=== PATIENT | male | born 1975 | race Caucasian/White ===

== ENCOUNTER 2020-02-25 01:25 | Outpatient (CLI) | payer BC, SELFPAY ==
[2020-02-25 17:41] LABS: SARS-CoV-2 RNA PCR Negative
== END 2020-02-25 01:26 | disposition home or self-care (01) ==
LOC: ANHCOVIDDT 01:25
PROVIDERS: Visit Provider Internal Medicine Gastroenterology
DX: Z01.812 Encounter for preprocedural laboratory examination (principal); Z20.828 Contact with and (suspected) exposure to other viral communicable diseases
CPT/HCPCS: 87635; C9803; U0003

== ENCOUNTER 2020-02-27 02:58 | Day surgery (SDC) | payer BC, SELFPAY ==
[2020-02-20 13:38] VITALS: BMI 33.4
[2020-02-27 08:50] VITALS: BP 142/80; PULSE 91; RESP 18; TEMP 36.7; O2SAT 98
[2020-02-27] MEDS: LACTATED RINGERS 1,000 ML 150 ML IV CONT (09:08)
[2020-02-27 09:21] LABS: Glucose Point of Care 152 (65-105)
--- NOTE | 2020-02-27 09:34 | P.HP_ITS ---
History of Present Illness History of Present Illness Consent: Risks, benefits, and alternatives have been discussed and questions answered. Patient agrees to proceed with procedure. Chief complaint: Melena Narrative: Rolando Haley is a 44 year old male Who has seen blood in his stools the last few months. It is generally dark, sometimes clots. He has had some tendency to constipation, and has had some Pain from time to time in his mid abdomen. [facility] Social History Social History Smoking status: Never smoker Smokeless tobacco user: chewing tobacco Alcohol intake: never Substance use: never Substance use type: does not use Living arrangements: with family Spiritual care concerns: No Meds Home Medications and Allergies Home Medications Medication Instructions Recorded Confirmed Type citalopram 40 mg PO DAILY 02/20/20 02/20/20 History ergocalciferol (vitamin D2) 50,000 unit PO WEEKLY 02/20/20 02/20/20 History insulin lispro [Humalog U-100 0 - 60 sliding scale dose 02/20/20 02/20/20 History Insulin] CONTINUOUS SUBCUTANEOUS INFUSION TID omeprazole 40 mg PO DAILY 02/20/20 02/20/20 History rosuvastatin 20 mg PO DAILY 02/20/20 02/20/20 History Allergies Allergy/AdvReac Type Severity Reaction Status Date / Time No Known Allergies Allergy Verified 02/27/20 08:49 Vital Signs Vital Signs - 24 hr 02/27/20 08:50 Temperature 36.7 C Pulse Rate 91 Respiratory Rate 18 Blood Pressure 142/80 H Pulse Oximetry 98 Exam Const: General: alert Orientation/consciousness: patient oriented x3 Resp: Auscultation: clear to auscultation bilaterally Cardio: Rhythm: regular rhythm GI: GI Palp: Yes Soft to palpation and No Tenderness to palpation present (GI) Neuro: General: patient oriented x3 Assessment and Plan Assessment and plan (1) Blood in stool: Code(s): K92.1 - Melena Status: Acute Assessment and Plan: Colonoscopy with possible biopsy or polypectomy or cautery or injection of substances.EGD with possible biopsy or dilatation or cautery.
--- NOTE | 2020-02-27 09:39 | WPDANESEPPF ---
Anes - Initial Pre Proc Eval Procedure: Operation Date: 02/27/20 09:30 Proposed Procedures p Esophagogastroduodenoscopy & Colonoscopy - Pradeep Ferris MD Date/Time: 02/27/20 09:39 Surgeon: Pradeep Ferris MD Pre Op Diagnosis: Melena Patient Data Age: 44 Gender: M Height: 6 ft 2 in Weight: 117.7 kg Last Vital Signs Temp 98.1 F 02/27/20 08:50 Pulse 91 02/27/20 08:50 Resp 18 02/27/20 08:50 BP 142/80 H 02/27/20 08:50 Pulse Ox 98 02/27/20 08:50 Allergies Allergy/AdvReac Type Severity Reaction Status Date / Time No Known Allergies Allergy Verified 02/27/20 08:49 Home Medications Medication Instructions Recorded Confirmed Type citalopram 40 mg PO DAILY 02/20/20 02/20/20 History ergocalciferol (vitamin D2) 50,000 unit PO WEEKLY 02/20/20 02/20/20 History insulin lispro [Humalog U-100 0 - 60 sliding scale dose 02/20/20 02/20/20 History Insulin] CONTINUOUS SUBCUTANEOUS INFUSION TID omeprazole 40 mg PO DAILY 02/20/20 02/20/20 History rosuvastatin 20 mg PO DAILY 02/20/20 02/20/20 History Laboratory Tests 02/27/20 09:19 POC Capillary Glucose 152 mg/dl H mg/dl (65-105) Patient hx anesthesia problems: none Family hx anesthesia problems: none [facility] Past Medical History Medical History (Updated 02/27/20 @ 09:39 by Pascual Marroquin MD) Depression Diabetes GERD (gastroesophageal reflux disease) Social History Social History Smoking status: Never smoker Smokeless tobacco user: chewing tobacco Alcohol intake: never Substance use: never Substance use type: does not use Living arrangements: with family Spiritual care concerns: No Anes - Eval Final PreProcedure Day of Procedure 02/27/20 09:39 Patient weight: obese Heart: regular rate and rhythm Lungs: clear to auscultation Airway: Mallampati scale class II Neurological: alert and oriented Last oral intake: >/= 8 hours ASA classification: III Emergent: no Anesthetic plan: proceed Anesthesia type and monitoring: general GIVS and standard monitoring Informed Consent: The patient's anesthetic plan and its attendant risks and benefits were discussed with the patient/family/POA. Questions were solicited and answers provided to the satisfaction of the patient/family/POA.
[2020-02-27 10:21] VITALS: BP 106/52; PULSE 82; RESP 12; O2SAT 96
[2020-02-27 10:31] VITALS: BP 107/64; PULSE 79; RESP 13; O2SAT 96
[2020-02-27 10:41] VITALS: BP 108/59; PULSE 73; RESP 12; O2SAT 96
== END 2020-02-27 11:09 | disposition home or self-care (01) ==
PROVIDERS: PCP Nurse Practitioner Family; Visit Provider Internal Medicine Gastroenterology
PROC: 0DJ08ZZ Inspection of Upper Intestinal Tract, Via Natural or Artificial Opening Endoscopic (ICD-10-PCS; CPT 43235; principal; 2020-02-27 09:30)
DX: K62.5 Hemorrhage of anus and rectum (principal); K62.89 Other specified diseases of anus and rectum; K21.9 Gastro-esophageal reflux disease without esophagitis; E11.9 Type 2 diabetes mellitus without complications; F32.9 Major depressive disorder, single episode, unspecified; Z79.4 Long term (current) use of insulin; E66.9 Obesity, unspecified; Z68.33 Body mass index [BMI] 33.0-33.9, adult
CPT/HCPCS: 45380; 43239; 87081; 88305; 88342; J2704; J7120

== ENCOUNTER 2022-09-21 07:31 | Emergency (ER) | payer OTHER, SELFPAY ==
--- NOTE | ~2022-09-21 | XR_ITS ---
EXAMINATION: XR chest 1V portable DATE: 09/21/2022 08:15 INDICATION: Chest pain radiating to the back. TECHNIQUE: A single frontal view of the chest was obtained. COMPARISON: None. FINDINGS: There is mild atelectasis in left lower lung zone. No pleural effusion or pneumothorax. The heart size is normal. IMPRESSION: 1. Mild atelectasis in left lower lung zone. Reviewed, dictated and finalized at location A.
[2022-09-21 07:32] VITALS: BP 135/74; PULSE 86; RESP 15; TEMP 36.2; O2SAT 100
--- NOTE | 2022-09-21 07:34 | ECG_ITS ---
Measurements Intervals [place] Rate: 97 P: 22 RI: 134 QRS: -16 QRSD: 89 T: 30 QT: 331 QTc: 422 Interpretive Statements SINUS RHYTHM BASELINE WANDER- V1 NORMAL ECG NO PREVIOUS ECG AVAILABLE FOR COMPARISON Electronically Signed On 09-21-2022 7:57:03 CDT by Dewayne Smith D.O.
[2022-09-21 07:37] VITALS: BP 132/75; RESP 19; TEMP 36.8; O2SAT 99
[2022-09-21 07:44] VITALS: PULSE 95
[2022-09-21 07:46] VITALS: BP 125/72; PULSE 95; RESP 23; O2SAT 98
--- NOTE | 2022-09-21 07:50 | ED.CHESTPAIN ---
HPI - Chest Pain General Chief Complaint: Chest Pain Stated Complaint: chest pain Time Seen by Provider: 09/21/22 07:36 History of Present Illness HPI narrative: Pt presents with sharp pain across anterior chest since about 0300 this morning. Pt says the pain has been constant and radiates to low back. Pt denies SOB. Pt denies SOB or change in pain with breathing. Pt denies calf pain or PERKINS. Pt has had recent hand foot mouth and strep throat infections. Pt has not tried anything to relieve symptoms yet. Related Data Home Medications Medication Instructions Recorded Confirmed citalopram 40 mg tablet 40 mg PO DAILY 02/20/20 03/13/20 ergocalciferol (vitamin D2) 1,250 50,000 unit PO WEEKLY 02/20/20 03/13/20 mcg (50,000 unit) capsule insulin lispro 100 unit/mL 0 - 60 sliding scale dose 02/20/20 03/13/20 subcutaneous solution (Humalog continuous subcutaneous infusion U-100 Insulin) TID omeprazole 40 mg capsule,delayed 40 mg PO DAILY 02/20/20 03/13/20 release rosuvastatin 20 mg tablet 20 mg PO DAILY 02/20/20 03/13/20 Allergies Allergy/AdvReac Type Severity Reaction Status Date / Time No Known Allergies Allergy Verified 03/13/20 10:21 Review of Systems Review of Systems: All systems reviewed & are unremarkable except as noted in HPI and below PMFSH Past Medical History Medical History (Updated 09/21/22 @ 08:31 by Alice Sánchez III, DO) Depression Diabetes GERD (gastroesophageal reflux disease) Ulcerative proctitis Social History Social History (Updated 03/13/20 @ 10:25 by Lesley Muniz CMA) Years smoked: 27 Smoking status: Never smoker Smokeless tobacco user: chewing tobacco Alcohol intake: never Substance use: never Substance use type: does not use Living arrangements: with family Spiritual care concerns: No Exam Const: General: healthy appearing Nutritional Appearance: well nourished Orientation/consciousness: patient oriented x3 Limitations: no limitations Eyes: Conjunctivae: conjunctivae normal EOM: EOMs intact bilaterally Neck: Neck: normal visual inspection, no lymphadenopathy and no meningeal signs Chest: Chest palpation & inspection: normal inspection of the chest Resp: Effort & Inspection: normal respiratory effort Auscultation: clear to auscultation bilaterally Cardio: Rate: regular rate Rhythm: regular rhythm GI: GI Palp: Yes Soft to palpation Auscultation: normal bowel sounds Back/Spine/Pelvis: Back: no CVA tenderness Skin: General skin exam: normal color Neuro: General: patient oriented x3, moves all extremities, no focal motor deficits and CN's II-XI intact bilaterally Cranial nerves: Yes Nystagmus not present Speech: normal speech Extrem: General: normal to inspection and no clubbing, cyanosis or edema Psych: Mental Status: mental status grossly normal Affect: normal affect Attitude: cooperative Course Vital Signs Vital signs: Vital Signs Temperature 97.1 F L 09/21/22 07:32 Pulse Rate 86 09/21/22 07:32 Respiratory Rate 15 09/21/22 07:32 Blood Pressure 135/74 09/21/22 07:32 Pulse Oximetry 100 09/21/22 07:32 Oxygen Delivery Room Air 09/21/22 07:32 Temperature 98.2 F 09/21/22 07:37 Pulse Rate 109 H 09/21/22 08:31 Respiratory Rate 22 H 09/21/22 08:31 Blood Pressure 120/66 09/21/22 08:31 Pulse Oximetry 96 09/21/22 08:31 Oxygen Delivery Room Air 09/21/22 07:37 MDM - Chest Pain MDM Narrative Medical decision making narrative: Pt has sharp CP for almost 5 hrs persistently EKG is normal. Does not seem likely to be cardiac but should get a troponin and labs and cxr to be safe and try some toradol for pain. cp relieved with toradol and trop and ekg and labs fine. pt wants to go home. Differential Diagnosis Differential diagnosis: Likely pneumothorax, atypical chest pain, st elevation myocardial infarction, costochondritis, chest pain and other (pleurisy) Lab Data 09/21/22 07:48
[2022-09-21] MEDS: KETOROLAC 15 MG/ML VIAL (*BKC) IV PUSH (07:55)
[2022-09-21 07:56] LABS: Basophils Absolute Auto 0.1 K/mm3 (0.0-0.1); Eosinophils Absolute Auto 0.3 K/mm3 (0-0.3); Eosinophils Percent Auto 2.8 % (0-4.4); Hematocrit 38.8 % (42.0-52.0); Hemoglobin 13.3 g/dL (14.0-18.0); Immature Granulocyte Absolute 0.86 K/mm3 (0.00-0.031); Immature Granulocyte Percent A 8.9 % (0-0.5); Immature Platelet Fraction Pct 6.1 % (0.9-11.2); Lymphocytes Absolute Auto 1.24 K/mm3 (0.9-3.2); Lymphocytes Percent Auto 12.8 % (18.3-44.2); Mean Corpuscular HGB Conc 34.3 g/dl (32-36); Mean Corpuscular Volume 87.6 fl (80-100); Mean Platelet Volume 10.4 fl (7.4-10.4); Monocytes Absolute Auto 0.6 K/mm3 (0.1-0.6); Monocytes Percent Auto 5.8 % (2.6-8.5); Neutrophils Absolute Auto 6.6 K/mm3 (1.3-6.7); Neutrophils Percent Auto 68.7 % (45.5-73.1); Nucleated Red Blood Cells Perc 0.2 % (0.0-0.2); Platelet Count Result 148 k/mm3 (150-375); Red Blood Count 4.43 M/mm3 (4.6-6.20); Red Cell Distribution Width 12.4 % (11.5-14.5); White Blood Count 9.7 K/mm3 (4.5-10.0)
[2022-09-21 08:07] LABS: Alanine Aminotransferase 28 U/L (6-50); Albumin Level 3.8 g/dL (3.5-5.1); Alkaline Phosphatase 125 U/L (38-126); Anion Gap 6 mmol/L (8-16); Aspartate Amino Transferase 28 U/L (17-59); Bilirubin,Total 5.7 mg/dL (0.2-1.3); Blood Urea Nitrogen 15 mg/dL (9-20); Calcium 8.4 mg/dL (8.4-10.2); Carbon Dioxide 28 mmol/L (22-30); Chloride 101 mmol/L (98-107); Estimated CRCL calculation 133 ml/min; Estimated Glomerular Filt Rate > 60; Glucose 153 mg/dL (65-110); Lipase 18 U/L (23-300); Potassium 3.5 mmol/L (3.4-5.0); Sodium 135 mmol/L (137-145)
[2022-09-21 08:08] LABS: INR 1.1; Prothrombin Time 14.3 Seconds (11.1-14.7)
[2022-09-21 08:09] LABS: Partial Thromboplastin Time 34.3 SECONDS (22.3-36.8)
[2022-09-21 08:15] VITALS: RESP 22; O2SAT 95
[2022-09-21 08:18] LABS: Troponin I < 0.012 ng/mL (0.000-0.034)
[2022-09-21 08:31] VITALS: BP 120/66; PULSE 109; RESP 22; O2SAT 96
== END 2022-09-21 09:03 | disposition home or self-care (01) ==
PROVIDERS: Emergency Provider Emergency Medicine; PCP Nurse Practitioner Family
DX: R09.1 Pleurisy (principal); F32.A Depression, unspecified; E11.9 Type 2 diabetes mellitus without complications; Z79.4 Long term (current) use of insulin; K21.9 Gastro-esophageal reflux disease without esophagitis
CPT/HCPCS: 36415; 71045; 80053; 83690; 84484; 85025; 85055; 85610; 85730; 93005; 96374; 99284; J1885

== ENCOUNTER 2023-06-18 12:48 | Observation (INO) | payer OTHER, SELFPAY ==
[2023-06-18] VITALS (8 sets, daily range): BP systolic 113–132; BP diastolic 76–81; PULSE 75–114; RESP 13–20; TEMP 36.5–36.7; O2SAT 96–99; BMI 29.1
[2023-06-18 13:29] LABS: Basophils Percent Auto 0.5 % (0.2-1.2); Eosinophils Percent Auto 0.2 % (0-4.4); Hematocrit 46.2 % (42.0-52.0); Hemoglobin 15.2 g/dL (14.0-18.0); Immature Granulocyte Absolute 0.02 K/mm3 (0.00-0.031); Immature Granulocyte Percent A 0.2 % (0-0.5); Lymphocytes Percent Auto 20.6 % (18.3-44.2); Mean Corpuscular HGB Conc 32.9 g/dl (32-36); Mean Corpuscular Hemoglobin 29.3 pg (26-34); Mean Platelet Volume 11.1 fl (7.4-10.4); Monocytes Absolute Auto 0.3 K/mm3 (0.1-0.6); Monocytes Percent Auto 4.1 % (2.6-8.5); Neutrophils Absolute Auto 6.1 K/mm3 (1.3-6.7); Neutrophils Percent Auto 74.4 % (45.5-73.1); Platelet Count Result 222 k/mm3 (150-375); Red Blood Count 5.19 M/mm3 (4.6-6.20); Red Cell Distribution Width 12.3 % (11.5-14.5); White Blood Count 8.3 K/mm3 (4.5-10.0)
[2023-06-18 13:30] LABS: Appearance Urine Clear (Clear); Bilirubin Urine Negative (Negative); Blood Urine Negative (Negative); Color Urine Yellow (Yellow); Glucose Urine UA 3+ mg/dL (Negative); Ketones Urine 4+ mg/dL (Negative); Leukocyte Esterase Ur Negative LEU/UL (Negative); Nitrate Urine Negative (Negative); Protein Urine Negative (Negative); Specific Grav Ur 1.032 (1.001-1.035); Urobilinogen Urine 0.2 mg/dL (<2.0)
[2023-06-18 13:39] LABS: Add Urine Microscopic? NO
[2023-06-18 13:41] LABS: Alanine Aminotransferase 22 U/L (6-50); Albumin Level 4.3 g/dL (3.5-5.1); Alkaline Phosphatase 240 U/L (38-126); Anion Gap 20 mmol/L (8-16); Aspartate Amino Transferase 25 U/L (17-59); Bilirubin,Total 1.4 mg/dL (0.2-1.3); Blood Urea Nitrogen 20 mg/dL (9-20); Calcium 9.5 mg/dL (8.4-10.2); Carbon Dioxide 14 mmol/L (22-30); Chloride 98 mmol/L (98-107); Estimated CRCL calculation 116 ml/min; Estimated Glomerular Filt Rate > 60; Glucose 441 mg/dL (65-110); Magnesium 2.2 mg/dL (1.6-2.3); Phosphorus 3.6 mg/dL (2.5-4.5); Potassium 4.7 mmol/L (3.4-5.0); Sodium 132 mmol/L (137-145)
[2023-06-18 14:13] LABS: Beta-Hydroxybutyrate/Acetoacetate 7.56 mmol/L (0.02-0.27)
[2023-06-18 15:41] LABS: Glucose Point of Care 380 mg/dl (65-105)
[2023-06-18] MEDS: SODIUM CHLORIDE 0.9% IV 1,000 ML 999 ML IV CONT ×3 (15:53→17:33)
[2023-06-18] MEDS: INSULIN HUMAN REGULAR (*BKC) 100 UNITS/ML 10 UNITS IV PUSH (15:53)
--- NOTE | 2023-06-18 15:53 | ED.RECABL ---
HPI - Recheck/Abnormal Lab/Rx General Chief Complaint: Recheck/Abnormal Lab/Rx Stated Complaint: high blood sugar Time Seen by Provider: 06/18/23 15:43 Source: patient Mode of arrival: ambulatory Limitations: no limitations History of Present Illness HPI narrative: This is a 47-year-old male that presents to the emergency department for nausea and vomiting. Ongoing intermittently over the last couple of days. Reports generalized weakness and dry mouth today. Reports his blood sugars have been elevated. He recently switched from being on an Omnipod to insulin injections. Denies fever, cough, congestion, dysuria, or abdominal pain. Related Data Home Medications Medication Instructions Recorded Confirmed citalopram 40 mg tablet 40 mg PO DAILY 02/20/20 06/18/23 insulin lispro 100 unit/mL 0 - 60 sliding scale dose 02/20/20 06/18/23 subcutaneous solution (Humalog continuous subcutaneous infusion U-100 Insulin) TID Allergies Allergy/AdvReac Type Severity Reaction Status Date / Time No Known Allergies Allergy Verified 06/18/23 15:41 Review of Systems Review of Systems: CONSTITUTIONAL: Denies fever ENT: Denies rhinorrhea, congestion, sore throat RESPIRATORY: Denies cough or dyspnea. GASTROINTESTINAL: Reports nausea, vomiting GENITOURINARY: Denies dysuria All systems reviewed & are unremarkable except as noted in HPI and below PMFSH Past Medical History Medical History (Updated 06/18/23 @ 18:00 by Alise Platt PA-C) Depression Diabetes GERD (gastroesophageal reflux disease) Ulcerative proctitis Social History Social History (Updated 03/13/20 @ 10:25 by Lesley Muniz [facility]) Years smoked: 27 Smoking status: Never smoker Smokeless tobacco user: chewing tobacco Alcohol intake: never Substance use: never Substance use type: does not use Living arrangements: with family Spiritual care concerns: No Exam Narrative: GENERAL: Well-appearing, well-nourished, and in no acute distress. HEAD: Normocephalic, atraumatic. EYES: EOMI. ENT: Nares clear, no rhinorrhea or epistaxis. Mucous membranes dry. CHEST: Clear to auscultation. No respiratory distress. No wheezes rales or rhonchi HEART: Regular rate and rhythm. No murmur heard. Normal peripheral pulses. ABDOMEN: Soft, nontender, nondistended, normal active bowel sounds. EXTREMITIES: Normal range of motion. No edema. SKIN: Warm, dry, no rash. NEURO: No focal deficits. Alert and oriented x3. PSYCH: Normal mood and affect Course Course Emergency Course: Patient updated on his workup and need for admission Consultations Consultation #1: Spoke with hospitalist about patient and workup who accepts admission Date: 06/18/23 Consultation #2: Spoke with retail planner who will consult Date: 06/18/23 Vital Signs Vital signs: Vital Signs Temperature 97.8 F 06/18/23 13:07 Pulse Rate 114 H 06/18/23 13:07 Respiratory Rate 16 06/18/23 13:07 Blood Pressure 126/80 06/18/23 13:07 Pulse Oximetry 98 06/18/23 13:07 Temperature 97.8 F 06/18/23 13:07 Pulse Rate 88 06/18/23 17:16 Respiratory Rate 17 06/18/23 17:16 Blood Pressure 132/80 06/18/23 17:16 Pulse Oximetry 98 06/18/23 17:16 MDM - Recheck/Abnormal Lab/Rx MDM Narrative Medical decision making narrative: This is a 47-year-old male that presents to the emergency department for elevated blood sugars, vomiting and feeling generally unwell. Tachycardic upon arrival, this normalized with IV fluid hydration. He is afebrile and nontoxic appearing. CBC without leukocytosis. Metabolic panel with anion gap of 20, bicarb is 14, blood sugar 441. 4+ ketones in the urine. Beta hydroxybutyrate is elevated. On ABG pH is normal, bicarb is 23.8. Patient updated on his workup and need for admission. Hydrated with 3 L of IV fluids and started on insulin drip. Spoke with hospitalist about patient and workup who accepts admission. Spoke with retail planner who rossana
[2023-06-18 16:07] LABS: Alveolar/Arterial O2 Gradient 20.9 mmHg; Base Excess ABG -9.9 mEq/l (+/-2.0); Carboxyhemoglobin 0.8 % THb (0-2.0); Fractional Inspired Oxygen 21 %; HCO3 ABG 13.3 mEq/l (22.0-26.0); Methemoglobin ABG 0.3 %THb (0-1.5); Oxygen Content ABG 20.1 %vol (16.0-22.0); Oxygen Saturation ABG 97.5 % (95.0-100.0); Oxyhemoglobin 96.1 % THb (90.0-100.0); PO2 ABG 100.3 mmHg (80.0-100.0); PO2 FiO2 Ratio Arterial Blood 4.78 %; Reduced Hemoglobin 2.8 %THb (0-5.0); Total Hemoglobin 14.8 g/dL (12.0-18.0); pH ABG 7.366 (7.350-7.450)
[2023-06-18] MEDS: INSULIN HUMAN REGULAR (*BKC) 100 UNITS in SODIUM CHLORIDE 0.9% IV 99 ML 10.9 UNITS IV CONT (16:07)
[2023-06-18 16:10] LABS: PCO2 ABG 23.8 mmHg (35.0-45.0)
[2023-06-18 16:11] LABS: Modified Allen's Test Pass; Site Drawn RIGHT RADIAL
[2023-06-18 16:57] LABS: Hemoglobin A1C 12.1 % (<5.7)
[2023-06-18 17:01] LABS: Anion Gap 17 mmol/L (8-16); Blood Urea Nitrogen 18 mg/dL (9-20); Calcium 8.8 mg/dL (8.4-10.2); Carbon Dioxide 13 mmol/L (22-30); Chloride 103 mmol/L (98-107); Estimated CRCL calculation 146 ml/min; Estimated Glomerular Filt Rate > 60; Glucose 287 mg/dL (65-110); Potassium 3.8 mmol/L (3.4-5.0); Sodium 133 mmol/L (137-145)
[2023-06-18 17:18] LABS: Glucose Point of Care 239 mg/dl (65-105)
[2023-06-18] MEDS: SODIUM CHLORIDE 0.9% IV 1,000 ML 125 ML IV CONT (17:33)
[2023-06-18 18:19] LABS: Glucose Point of Care 221 mg/dl (65-105)
--- NOTE | 2023-06-18 18:19 | PM.IMHP ---
H&P: HPI History of Present Illness Date/Time: 06/18/23 18:20 Chief Complaint: High blood sugar. Narrative: This is a 47-year-old male with insulin-dependent type 2 diabetes mellitus who presented to the emergency department via private vehicle for evaluation of high blood sugar. The patient provides the following history. The last several days his glucose has been reading HIGH on his glucometer and he has not been feeling great since that time with generalized weakness, dry mouth, nausea, and vomiting. He was recently switched from being on an Omnipod to sliding scale insulin due to a change in insurance and doctors. He has had a much more difficult time keeping his glucose under control with this method. He does not really have any other complaints and he denies fever, chills, sweats, cold and flu symptoms, chest pain, shortness a breath, abdominal pain, nausea, vomiting, diarrhea. In the ED: He was afebrile on arrival with stable blood pressures. He was mildly tachypneic but that has improved with IV fluids. His labs were significant for sodium of 132, potassium 4.7, carbon dioxide 14, anion gap 20, BUN 20, creatinine 0.90, glucose 441, beta hydroxybutyrate 7.56. Urine was positive for 3+ glucose and 4+ ketones. Hemoglobin A1c was 12.1%. ABG showed a pH of 7.336, pCO2 23.8, and a HC03 of 13.3. He was given 2 L normal saline and was started on insulin drip for DKA. He is being admitted to the ICU for further treatment. Review of Systems Review of Systems: Twelve systems were reviewed and are negative except for as per HPI. [facility] Past Medical History Medical History (Updated 06/19/23 @ 13:59 by Tresa Stephenson PA-C) Depression Gastroesophageal reflux disease Insulin dependent type 2 diabetes mellitus Ulcerative proctitis Surgical History Surgical History History of colonoscopy (02/2020) Proctitis. History of esophagogastroduodenoscopy (02/2020) NERD. Family History Family History (Updated 06/19/23 @ 13:59 by Tresa Stephenson PA-C) Other Diabetes mellitus Hypertension Social History Social History Social History: Surrogate medical decision maker: Linda Haley, spouse. Code status: Full code. Smoking status: Never smoker Smokeless tobacco user: chewing tobacco Second hand tobacco smoke exposure: Yes Alcohol intake: never Substance use: never Substance use type: does not use Do You Feel Safe in your Home?: Yes Lack of Transportation: No Lack of Food: Never True Current Housing: I Have Housing Concerned About Future Housing: No Difficulty Paying Gas/Electric Bills: No Difficulty Paying for Meds: No Currently Unemployed: No Education: Don't Know Difficulty w/ Childcare or Family Care: No Living arrangements: with family Spiritual care concerns: No Meds Home Medications and Allergies Home Medications Medication Instructions Recorded Confirmed Type citalopram 40 mg tablet 40 mg PO DAILY 02/20/20 06/18/23 History insulin lispro 100 unit/mL 0 - 60 sliding scale dose 02/20/20 06/18/23 History subcutaneous solution (Humalog continuous subcutaneous infusion U-100 Insulin) TID Allergies Allergy/AdvReac Type Severity Reaction Status Date / Time No Known Allergies Allergy Verified 06/18/23 15:41 Vital Signs Vital Signs - 24 hr 06/18/23 13:07 06/18/23 15:28 06/18/23 15:39 Temperature 97.8 F Pulse Rate 114 H 101 H Respiratory Rate 16 20 Blood Pressure 126/80 129/81 Pulse Oximetry 98 97 98 06/18/23 17:16 Temperature Pulse Rate 88 Respiratory Rate 17 Blood Pressure 132/80 Pulse Oximetry 98 Exam Narrative: General: Moderately ill-appearing gentleman in the semi-Mccarthy position in bed. Weight: 103.8 kg. BMI: 29.4. HEENT: PERRL, EOMI. Sclera anicteric. Tacky mucous membranes. Neck: Supple. Respirator
--- NOTE | 2023-06-18 18:35 | ADMGEN ---
This patient, Rolando Haley, was admitted to Intensive Care Unit-6. Patient/family oriented to hospital policies and general routines including ID bracelet, bed and alarms, visiting hours, pain management, procedures, bathroom and other care routines, personal items, smoking policy, room service/diet, and visiting hours. Information on how to activate the Rapid Response Team has been discussed. Patient/Family are encouraged to report perceived risks to care and to ask questions if they do not understand what they are told or what they should do.
[2023-06-18] MEDS: KCL 20 MEQ/D5/0.45% SOD CHL 1,000 ML 150 ML IV CONT (19:14)
[2023-06-18 19:27] LABS: Glucose Point of Care 185 mg/dl (65-105)
[2023-06-18 19:40] LABS: Hemoglobin A1C 11.9 % (<5.7)
[2023-06-18 19:44] LABS: Anion Gap 7 mmol/L (8-16); Blood Urea Nitrogen 16 mg/dL (9-20); Calcium 8.1 mg/dL (8.4-10.2); Carbon Dioxide 19 mmol/L (22-30); Chloride 109 mmol/L (98-107); Estimated CRCL calculation 149 ml/min; Estimated Glomerular Filt Rate > 60; Glucose 167 mg/dL (65-110); Phosphorus 2.9 mg/dL (2.5-4.5); Potassium 3.7 mmol/L (3.4-5.0); Sodium 135 mmol/L (137-145)
[2023-06-18] MEDS: INSULIN GLARGINE (*BKC) 100 UNITS/ML 30 UNITS SUB-Q (20:38)
[2023-06-18 20:42] LABS: Glucose Point of Care 170 mg/dl (65-105)
[2023-06-18 21:18] LABS: Glucose Point of Care 165 mg/dl (65-105)
[2023-06-18 22:20] LABS: Glucose Point of Care 188 mg/dl (65-105)
[2023-06-18 23:11] LABS: Glucose Point of Care 165 mg/dl (65-105)
[2023-06-19] VITALS (10 sets, daily range): BP systolic 119–146; BP diastolic 73–94; PULSE 73–91; RESP 12–20; TEMP 36.4–36.6; O2SAT 93–99
[2023-06-19 02:14] LABS: MRSA (PCR) NOT DETECTED (NOT DETECTE)
[2023-06-19 04:30] LABS: Hematocrit 39.7 % (42.0-52.0); Hemoglobin 13.4 g/dL (14.0-18.0); Mean Corpuscular HGB Conc 33.8 g/dl (32-36); Mean Corpuscular Hemoglobin 29.5 pg (26-34); Mean Corpuscular Volume 87.3 fl (80-100); Mean Platelet Volume 11.4 fl (7.4-10.4); Platelet Count Result 193 k/mm3 (150-375); Red Blood Count 4.55 M/mm3 (4.6-6.20); Red Cell Distribution Width 12.6 % (11.5-14.5); White Blood Count 6.6 K/mm3 (4.5-10.0)
[2023-06-19 04:43] LABS: Alanine Aminotransferase 16 U/L (6-50); Albumin Level 3.3 g/dL (3.5-5.1); Alkaline Phosphatase 120 U/L (38-126); Anion Gap 9 mmol/L (8-16); Aspartate Amino Transferase 23 U/L (17-59); Bilirubin,Total 1.2 mg/dL (0.2-1.3); Blood Urea Nitrogen 12 mg/dL (9-20); Calcium 8.4 mg/dL (8.4-10.2); Carbon Dioxide 17 mmol/L (22-30); Chloride 108 mmol/L (98-107); Estimated CRCL calculation 129 ml/min; Estimated Glomerular Filt Rate > 60; Glucose 236 mg/dL (65-110); Magnesium 2.1 mg/dL (1.6-2.3); Potassium 4.5 mmol/L (3.4-5.0); Sodium 134 mmol/L (137-145)
[2023-06-19 07:43] LABS: Glucose Point of Care 232 mg/dl (65-105)
[2023-06-19] MEDS: INSULIN ASPART (*BKC) 100 UNITS/ML SUB-Q ×4 (08:04→21:25)
[2023-06-19] MEDS: ENOXAPARIN 40 MG/0.4 ML SYRINGE SUB-Q (08:04)
[2023-06-19] MEDS: CITALOPRAM HYDROBROMIDE 20 MG TABLET 40 MG PO (08:10)
--- NOTE | 2023-06-19 09:46 | WPDCNINT ---
Assessment and Plan Assessment and plan (1) DKA (diabetic ketoacidosis): Qualifiers: Diabetes mellitus complication detail: without coma Diabetes mellitus type: type 2 Qualified Code(s): E11.10 - Type 2 diabetes mellitus with ketoacidosis without coma Code(s): E11.10 - Type 2 diabetes mellitus with ketoacidosis without coma Status: Acute Assessment and Plan: Patient presented the ED on 06/18/2023 from home with complains of elevated blood sugars, nausea, vomiting, generalized weakness was 7 days. He has been recently switched to SQinsulin from his insulin pump due to insurance issues -patient was found to be in DKA with elevated blood sugars, elevated beta hydroxybutyrate, anion gap metabolic acidosis, UA did show positive ketones and glucose -he was given 3 L IV fluid bolus in the ER and started on insulin infusion per DKA protocol -upon arrival to the ICU patient was transitioned by the hospitalist team to long-acting insulin Lantus and sliding scale insulin. -symptoms have resolved this morning, patient is tolerating his diabetic diet - (2) Uncontrolled diabetes mellitus: Status: Acute Assessment and Plan: Hemoglobin A1c this admission is 12.1 -blood sugars need to be better controlled -continue to monitor in the hospital on Lantus, will adjust as necessary (3) Depression: Code(s): F32.9 - Major depressive disorder, single episode, unspecified Status: Acute Assessment and Plan: Continue citalopram Plan DVT prophylaxis: Lovenox Stress ulcer prophylaxis: Not indicated Nutrition: Diabetic diet Code Status: Full code Critical Care Time Spent: 43 minutes Due to a high probability of clinically significant, life threatening deterioration, the patient required my highest level of preparedness to intervene emergently and I personally spent this critical care time directly and personally managing the patient. This critical care time included obtaining a history; examining the patient; pulse oximetry; ordering and review of studies; arranging urgent treatment with development of a management plan; evaluation of patient's response to treatment; frequent reassessment; and discussions with other providers. It was exclusive of separately billable procedures and treating other patients and teaching time. Please see Assessment and Plan section and the rest of the note for further information on patient assessment and treatment This dictation may have been done utilizing a voice recognition system. Attempts have been made to correct errors. However, there may be uncorrected grammatical, spelling, and recognitions errors present. [employer] Consult Note Consult date: 06/19/23 Reason for consult: Diabetic ketoacidosis, nausea, vomiting, hyperglycemia, generalized weakness HPI: Rolando Haley is a 47 year old male with past medical history of depression, diabetes, GERD, ulcerative proctitis presented to the ED on 04/17/2024 with complains of elevated blood sugars on his glucometer, has not been feeling good for the last several days, complaining of nausea, vomiting, dry mouth, generalized weakness. In the ER patient was found to be in diabetic ketoacidosis with elevated blood sugars of 441, elevated beta hydroxybutyrate and anion gap metabolic acidosis. Urine analysis was positive with 3+ glucose and 4+ ketones. His hemoglobin A1c is 12.1 this admission. Patient was given 3 L IV fluids and started on insulin infusion per DKA protocol and transferred to the ICU for further management. Patient seen and examined this morning, has already been transition overnight by the hospitalist team on long-acting insulin, Lantus and sliding scale insulin Accu-Cheks. Morning patient denies any chest pain, shortness a medical nausea, vomiting, abdominal pain. States he feels much better. Patient had adequate urine output, afebrile, hemodynamically stable.. Tolerating p.o. diet Review of Systems Review of S
--- NOTE | 2023-06-19 10:43 | PC.NURSE ---
SBAR faxed to med/surg, pt is aware he is not getting fully discharged from the hospital but is getting downgraded and moved to the 3rd floor, tele removed
--- NOTE | 2023-06-19 10:55 | PC.NURSE ---
This patient, Rolando Haley, was transferred to room 307 bed 2 on 06/19/23 at 1055. Personal belongings sent with patient. Report given to Susy. Appropriate documentation sent with patient.
[2023-06-19 11:44] LABS: Glucose Point of Care 297 mg/dl (65-105)
--- NOTE | 2023-06-19 13:41 | PM.IMPN ---
Progress Note: A&P Assessment and Plan (1) DKA (diabetic ketoacidosis): Qualifiers: Diabetes mellitus complication detail: without coma Diabetes mellitus type: type 2 Qualified Code(s): E11.10 - Type 2 diabetes mellitus with ketoacidosis without coma Code(s): E11.10 - Type 2 diabetes mellitus with ketoacidosis without coma Status: Acute Assessment and Plan: Patient presented the ED on 06/18/2023 from home with complains of elevated blood sugars, nausea, vomiting, generalized weakness was 7 days. He has been recently switched to SQinsulin from his insulin pump due to insurance issues -patient was found to be in DKA with elevated blood sugars, elevated beta hydroxybutyrate, anion gap metabolic acidosis, UA did show positive ketones and glucose -he was given 3 L IV fluid bolus in the ER and started on insulin infusion per DKA protocol -upon arrival to the ICU patient was transitioned by the hospitalist team to long-acting insulin Lantus and sliding scale insulin. -symptoms have resolved this morning, patient is tolerating his diabetic diet 06/19/23: Transferred to the [facility]; eager to be discharged. Added BID Lantus and incrased his correctional scale to high scale (2) Uncontrolled diabetes mellitus: Status: Acute Assessment and Plan: Hemoglobin A1c this admission is 12.1 -blood sugars need to be better controlled -continue to monitor in the hospital on Lantus, will adjust as necessary (3) Depression: Code(s): F32.9 - Major depressive disorder, single episode, unspecified Status: Acute Assessment and Plan: Continue citalopram Plan DVT prophylaxis: Lovenox Stress ulcer prophylaxis: Not indicated Nutrition: Diabetic diet Code Status: Full code Time Spent With Patient Time with patient: 25 - 35 minutes Subjective Date/time seen: 06/19/23 13:41 Interval history: 06/19/23: Seen and examined; being managed for DKA. Eager to go home. Review of Systems Review of Systems: Twelve systems were reviewed and are negative except for as per HPI. Constitutional: Constitutional: Reports fatigue Eyes: Eyes: Reports no additional eye complaints ENT: Reports Normal hearing present, Denies dysphagia and Denies epistaxis Cardiovascular: Cardiovascular: Denies chest pain, Denies pedal edema and Denies leg edema Respiratory: Respiratory: Denies cough and Denies dyspnea Gastrointestinal: Gastrointestinal: Denies no additional gastrointestinal complaints, Denies diarrhea and Denies vomiting Genitourinary: Genitourinary: Denies flank pain, Denies urinary frequency and Denies urinary urgency Musculoskeletal: Musculoskeletal: Denies myalgias Neurologic: Denies Abnormal speech present, Denies abnormal gait and Denies confusion Psychiatric: Psychiatric: Reports no additional psychiatric complaints Exam Narrative: General: Pleasant gentleman in no acute distress HEENT:? Pupils equal and reactive, sclera is clear, moist oral mucosa Neck:? Supple Respiratory: Clear to auscultation bilaterally, adequate air entry, no wheezing Cardiac:? S1-S2 is normal, regular rate and rhythm Abdomen:? Soft, nontender, nondistended, normoactive bowel sounds Extremities:? No edema, palpable pedal pulses Neuro:? Patient is awake, alert, oriented x3, nonfocal Skin:? Warm and dry Psych:? Depressed affect, normal mentation Objective Data Vital Signs Vital Signs: Vital Signs - 24 hr 06/18/23 15:28 06/18/23 15:39 06/18/23 17:16 Temperature Pulse Rate 101 H 88 Respiratory Rate 20 17 Blood Pressure 129/81 132/80 Pulse Oximetry 97 98 98 Oxygen Delivery 06/18/23 18:54 06/18/23 20:00 06/18/23 20:00 Temperature 97.7 F Pulse Rate 76 85 76 Respiratory Rate 18 18 Blood Pressure 128/80 Pulse Oximetry 99 99 Oxygen Delivery Room Air 06/18/23 22:12 06/18/23 22:12 06/18/23 20:00 Temperature 97.7 F Pulse Rate 84 85 85 Respiratory Rate 13 13 Blood Pressure
[2023-06-19 16:55] LABS: Glucose Point of Care 295 mg/dl (65-105)
[2023-06-19 21:06] LABS: Glucose Point of Care 217 mg/dl (65-105)
[2023-06-19] MEDS: INSULIN GLARGINE (*BKC) 100 UNITS/ML 20 UNITS SUB-Q (21:27)
[2023-06-20] MEDS: ACETAMINOPHEN 325 MG TABLET 650 MG PO (05:55)
[2023-06-20 06:00] VITALS: BP 124/74; PULSE 67; RESP 20; TEMP 36.9; O2SAT 99
[2023-06-20 06:53] LABS: Basophils Percent Auto 0.6 % (0.2-1.2); Eosinophils Absolute Auto 0.1 K/mm3 (0-0.3); Eosinophils Percent Auto 1.2 % (0-4.4); Hematocrit 42.3 % (42.0-52.0); Hemoglobin 14.8 g/dL (14.0-18.0); Immature Granulocyte Absolute 0.02 K/mm3 (0.00-0.031); Immature Granulocyte Percent A 0.4 % (0-0.5); Lymphocytes Absolute Auto 2.28 K/mm3 (0.9-3.2); Lymphocytes Percent Auto 46.1 % (18.3-44.2); Mean Corpuscular Hemoglobin 29.7 pg (26-34); Mean Corpuscular Volume 84.9 fl (80-100); Mean Platelet Volume 11.1 fl (7.4-10.4); Monocytes Absolute Auto 0.4 K/mm3 (0.1-0.6); Monocytes Percent Auto 7.3 % (2.6-8.5); Neutrophils Absolute Auto 2.2 K/mm3 (1.3-6.7); Neutrophils Percent Auto 44.4 % (45.5-73.1); Platelet Count Result 212 k/mm3 (150-375); Red Blood Count 4.98 M/mm3 (4.6-6.20); Red Cell Distribution Width 12.3 % (11.5-14.5)
[2023-06-20 06:59] LABS: Alanine Aminotransferase 17 U/L (6-50); Albumin Level 3.7 g/dL (3.5-5.1); Alkaline Phosphatase 109 U/L (38-126); Anion Gap 8 mmol/L (8-16); Aspartate Amino Transferase 21 U/L (17-59); Blood Urea Nitrogen 10 mg/dL (9-20); Calcium 8.8 mg/dL (8.4-10.2); Carbon Dioxide 25 mmol/L (22-30); Chloride 104 mmol/L (98-107); Estimated CRCL calculation 149 ml/min; Estimated Glomerular Filt Rate > 60; Glucose 178 mg/dL (65-110); Potassium 3.6 mmol/L (3.4-5.0); Sodium 137 mmol/L (137-145)
[2023-06-20 07:31] LABS: Glucose Point of Care 179 mg/dl (65-105)
[2023-06-20 09:00] VITALS: BMI 29.3
[2023-06-20] MEDS: INSULIN GLARGINE (*BKC) 100 UNITS/ML 20 UNITS SUB-Q (10:19)
[2023-06-20] MEDS: CITALOPRAM HYDROBROMIDE 20 MG TABLET 40 MG PO (10:19)
[2023-06-20] MEDS: ENOXAPARIN 40 MG/0.4 ML SYRINGE SUB-Q (10:19)
[2023-06-20 11:14] LABS: Glucose Point of Care 258 mg/dl (65-105)
[2023-06-20] MEDS: INSULIN ASPART (*BKC) 100 UNITS/ML SUB-Q (12:18)
--- NOTE | 2023-06-20 13:07 | PM.DS ---
DS: Admitting Diagnosis Discharge Date 06/20/23 Admitting Diagnosis Acute and principal conditions 1. DKA; Hyperglycemia 2. HAGMA. 3. IDDM. Hemoglobin A1c, 12.1%. DS: Discharge Diagnosis Discharge Diagnosis (1) Diabetic ketoacidosis: Code(s): E11.10 - Type 2 diabetes mellitus with ketoacidosis without coma Status: Acute Assessment and Plan: Insulin infusion; Basal+correctional insulin (2) Uncontrolled diabetes mellitus: Status: Acute Assessment and Plan: Due to insurance could not afford insulin pump and had to resort to self injections HbA1c (3) Depression: Code(s): F32.9 - Major depressive disorder, single episode, unspecified Status: Acute Assessment and Plan: Resume Citalopram Plan Acute and principal conditions 1. DKA; Hyperglycemia 2. HAGMA. 3. IDDM. Hemoglobin A1c, 12.1%. IVFs; Insulin infusion; Long-acting and correctional insulin regimen Chronic and principal conditions 3. Recurrent severe depression; chronic 4. Obesity. BMI 29 The patient presented to the emergency department for evaluation of elevated blood sugars, weakness, nausea, vomiting, and dry mouth the last several days as detailed in HPI. Labs, imaging, EKG, and all reports were personally reviewed and were unremarkable He met criteria for diabetic ketoacidosis with hyperglycemia, ketonuria, increased anion gap metabolic acidosis, and elevated beta hydroxybutyrate. Procedures performed: None Treatment rendered: He is being aggressively hydrated has been started on insulin drip which will be titrated per DKA protocol. Continue Q hourly Accu-Cheks and q.4 hours BMPs to monitor for improvement in glucose and for anion gap closure. Electrolytes will be monitored and replaced as needed. Transition to long-acting insulin upon resolution of DKA; he was previously receiving about 30 units of insulin a day before he made the transition to the sliding scale insulin. Hemoglobin A1c, 12.1%. Discharge medication: Included Lantus, Humalog Discharged on 06/20/23 DS: Summary Hospital Course Hospital Course: Rolando Haley is a 47-year-old male with insulin-dependent type 2 diabetes mellitus who presented to the emergency department via private vehicle for evaluation of high blood sugar. The patient provides the following history. The last several days his glucose has been reading HIGH on his glucometer and he has not been feeling great since that time with generalized weakness, dry mouth, nausea, and vomiting. He was recently switched from being on an Omnipod to sliding scale insulin due to a change in insurance and doctors. He has had a much more difficult time keeping his glucose under control with this method. He does not really have any other complaints and he denies fever, chills, sweats, cold and flu symptoms, chest pain, shortness a breath, abdominal pain, nausea, vomiting, diarrhea. In the ED: He was afebrile on arrival with stable blood pressures. He was mildly tachypneic but that has improved with IV fluids. His labs were significant for sodium of 132, potassium 4.7, carbon dioxide 14, anion gap 20, BUN 20, creatinine 0.90, glucose 441, beta hydroxybutyrate 7.56. Urine was positive for 3+ glucose and 4+ ketones. Hemoglobin A1c was 12.1%. ABG showed a pH of 7.336, pCO2 23.8, and a HC03 of 13.3. He was given 2 L normal saline and was started on insulin drip for DKA.? He is being admitted to the ICU for further treatment. Acute and principal conditions 1. DKA; Hyperglycemia 2. HAGMA. 3. IDDM. Hemoglobin A1c, 12.1%. IVFs; Insulin infusion; Long-acting and correctional insulin regimen Chronic and principal conditions 3. Recurrent severe depression; chronic 4. Obesity. BMI 29 The patient presented to the emergency department for evaluation of elevated blood sugars, weakness, nausea, vomiting, and dry mouth the last several days as detailed in HPI. Labs, imaging, EKG, and all reports were personally reviewed
--- NOTE | 2023-06-27 12:24 | PCCDE ---
06/27/23: This [facility] left follow up message, checking in on pt phone s/p discharged [facility]
== END 2023-06-20 13:35 | disposition home or self-care (01) ==
LOC: ANHED 18:00 → ANH3MEDSUR 06-20 13:03 → ANHICU 06-21 09:10
PROVIDERS: Emergency Medicine; Internal Medicine; Physician Assistant; Admitting Provider Internal Medicine; Emergency Provider Physician Assistant; Visit Provider Internal Medicine
DX: E11.10 Type 2 diabetes mellitus with ketoacidosis without coma (principal); Z96.41 Presence of insulin pump (external) (internal); F32.9 Major depressive disorder, single episode, unspecified; K21.9 Gastro-esophageal reflux disease without esophagitis; F17.220 Nicotine dependence, chewing tobacco, uncomplicated; Z79.4 Long term (current) use of insulin; Z79.899 Other long term (current) drug therapy
CPT/HCPCS: 36415; 36600; 80048; 80053; 81003; 82010; 82375; 82805; 82948; 83036; 83050; 83735; 84100; 85025; 85027; 87641; 96361; 96365; 96366; 96372; 96374; 99285; A9270; G0378; J1650; J1815; J3480; J7030